=== PATIENT | male | born 1940 | race Caucasian/White ===

== ENCOUNTER 2017-09-26 09:05 | Observation (INO) ==
--- NOTE | 2017-09-26 08:43 | Anesthesia Evaluation PreOp ---
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 Other Medical History: Denies Any Significant HX Anesthesia History: No Prior Anesthetic Complications, Past Anesthesia Alcohol Use: none Drug use: none Medications and Allergies Aspirin Enteric Coated [Aspirin EC] 81 mg PO DAILY 09/04/17 [History] Clopidogrel [Plavix] 75 mg PO DAILY 09/04/17 [History] Lisinopril [Zestril] 5 mg PO DAILY 09/04/17 [History] Metoprolol XL (24 HR) Succ [Toprol Xl] 25 mg PO DAILY 09/04/17 [History] Nitroglycerin [Nitrostat] 0.4 mg SL Q5M PRN 09/04/17 [History] Simvastatin [Zocor] 40 mg PO HS 09/04/17 [History] Oseltamivir Phosphate [Tamiflu] 30 mg PO BID #8 capsule 09/07/17 [Rx] 3 Allergy/AdvReac Type Severity Reaction Status Date / Time No Known Allergies Allergy Verified 09/04/17 09:54 - Meds/Allergy Pre-op Review Medications Reviewed: Yes Allergies Reviewed: Yes Beta Blockers on Current Med List: Yes If Beta Blockers taken, Date/Time (Last Dose taken): today 729 Anesthesia Results - Labs Laboratory Tests 09/07/17 09/07/17 03:51 03:51 Hgb 11.5 L Hct 34.6 L Plt Count 95 L Sodium 135 L Potassium 4.3 BUN 20 Creatinine 0.73 - Imaging EKG: report reviewed (SINUS RHYTHM WITH FREQUENT VENTRICULAR PREMATURE COMPLEXES BORDERLINE RIGHT AXIS DEVIATION PROBABLE INFERIOR MYOCARDIAL INFARCTION, OF INDETERMINATE AGE) Additional studies: echo: Impressions: LVEF 45%. Normal LV chamber size and wall thickness. Atypical septal motion c/w a bundle branch block. Mild segmental left ventricular systolic dysfunction. Moderate left ventricular diastolic dysfunction. Atypical septal motion consistent with bundle branch block. Normal right ventricular structure and function. Mild tricuspid regurgitation. Mild pulmonary hypertension. Estimated RVSP is 41 mmHg. EF appears improved compared to prior report. Anesthesia Exam Selected Entries 09/26/17 09:26 Temperature 97.6 F Pulse Rate 73 Respiratory Rate 18 Blood Pressure 132/83 O2 Sat by Pulse Oximetry 99 Weight: 53kg NPO (# of Hours): 8 - HEENT Pupil (Motor): EOMI Mallampati: II Teeth: Edentulous Oral Opening: Greater than 3 - LOSS PREVENTION LEADER LOC: Oriented LOSS PREVENTION LEADER Motor: Normal RUE, Normal LUE, Normal RLE, Normal LLE, Normal Face LOSS PREVENTION LEADER Sensory: Normal: RUE, LUE, RLE, LLE, Face - Cardiac Rhythm: Regular Murmur: None - Pulmonary Breath Sounds: bilateral Clear Respiratory Effort: Symmetrical Anesthesia Assess/Plan ASA Score: 3 Modified Mike Scale for Level of Consciousness: Cooperative, oriented, and tranquil Anesthetic Plan: General Monitoring Plan: Standard Monitors, A-Line Recovery Plan: PACU (agrees to GA and a-line)
[~2017-09-26 09:05] MED LIST: Vancomycin 1,000 MG, Sodium Chloride IRRigation 1,000 ML IR ONE
[2017-09-26] MEDS ORDERED: CeFAZolin Syr 2,000MG/20 ML 2,000 MG/20 ML SYRINGE IVPB ONE (09:26)
[2017-09-26] MEDS ORDERED: Lidocaine -MPF 1% 2 ML VIAL ID ONE (09:26)
[2017-09-26] MEDS ORDERED: Vancomycin 750 MG in D5% in Water 250 ML IVPB ONE (09:26)
[2017-09-26] MEDS ORDERED: Plasma-Lyte A (PH 7.4) 1,000 ML IVC SCH (09:30)
[2017-09-26] MEDS ORDERED: Albuterol 2.5 MG/3 ML NEBULIZER IH ONE (09:51)
[2017-09-26] MEDS ORDERED: Albuterol 2.5 MG/3 ML NEBULIZER ONE (09:53)
--- NOTE | 2017-09-26 11:59 | History & Physical Report ---
Date of Encounter: 09/26/17 Time of Encounter: 11:50 24 Hour HP Update - Instructions Instructions: If the History and Physical is less than 30 days old and was completed prior to A.M. admission and or procedure and has NOT been updated on calendar day of procedure please complete this update prior to performing procedure. - Update Patient reports changes in Medical Condition: No Changes in examination, assessment, or condition: No Changes in Medication: No Preop tests/diagnostics Reviewed: Yes Surgery Remains Indicated: Yes Consent for Planned Operative Procedure(s) Verified: Yes - Pre-Operative Checklist Preoperative Checklist Indicated: Yes Prophylactic Antibiotic Ordered: Yes (vancomycin due to MRSA risk) Home Medications Include Beta Sean: Yes Beta Sean Taken Today (Day of Surgery): Yes Beta Sean Taken Yesterday (Day Prior to Surgery): Yes Is VTE Prophylaxis Indicated?: Yes
[2017-09-26] MEDS ORDERED: Heparin 1,000 UNITS/500 mL 0 ML ONE (12:22)
[2017-09-26] MEDS ORDERED: Bupivacaine-MPF 0.25% 10 ML VIAL ONE (12:25)
[2017-09-26] MEDS ORDERED: Protamine Sulfate 50 MG/5 ML VIAL IVP ONE (12:25)
[2017-09-26] MEDS ORDERED: Heparin 1,000 UNITS/500 mL 1,000 ML ONE (12:26)
[2017-09-26] MEDS ORDERED: Vancomycin 1,000 MG VIAL ONE (12:26)
[2017-09-26] MEDS ORDERED: *HR* PHENYLEPHRINE 1,000 MCG/10 ML SYRINGE IVP ONE (13:58)
[2017-09-26] MEDS ORDERED: Lidocaine -MPF 2% 2 ML VIAL ONE (13:58)
[2017-09-26] MEDS ORDERED: *HR* Propofol 200 MG/20 ML VIAL IVP ONE (13:58)
[2017-09-26] MEDS ORDERED: *HR* Midazolam HCl 2 MG/2 ML VIAL ONE (13:58)
[2017-09-26] MEDS ORDERED: *HR* Phenylephrine 10 MG/ML VIAL ONE (13:58)
[2017-09-26] MEDS ORDERED: *HR* FentaNYL (PF) 100 MCG/2 ML VIAL ONE (13:58)
[2017-09-26] MEDS ORDERED: *HR* Remifentanil 2 MG VIAL IVP ONE (13:58)
--- NOTE | 2017-09-26 14:01 | Anesthesia Procedures ---
Date of Encounter: 09/26/17 Time of Encounter: 13:10 Procedures: Anesthesia - Arterial Line Consent obtained: verbal consent Time out performed: Yes Local Anesthetic: Lidocaine 1% (0.2mL) Size (Gauge): 20 Length (inches): 1 3/4 Technique Used: sterile prep, guide wire technique, direct puncture technique Post-Procedure: line taped into place, dry sterile dressing placed Patient tolerated procedure: well, no complications Complications: none Site: Radial L Vitals: see anesthesia record Comments: successful on 1st attempt
[2017-09-26] MEDS ORDERED: *HR* Heparin 5,000 UNIT/ML VIAL ONE ×2 (14:02→14:46)
[2017-09-26] MEDS ORDERED: *HR* HYDROmorphone 2 MG TABLET PO PRN (14:03)
[2017-09-26] MEDS ORDERED: Ondansetron 4 MG/2 ML VIAL IVP ONE (14:03)
[2017-09-26] MEDS ORDERED: *HR* Midazolam HCl 2 MG/2 ML VIAL IVP PRN (14:03)
[2017-09-26] MEDS ORDERED: MORPHINE SUL Oral CONC 10 MG/0.5 ML ORAL.SYG SL PRN (14:03)
[2017-09-26] MEDS ORDERED: *HR* Labetalol 20 MG/4 ML SYRINGE IVP PRN ×2 (14:03→16:48)
[2017-09-26] MEDS ORDERED: Acetaminophen IV 1,000 MG/100 ML INFUS..BTL ONE (14:09)
[2017-09-26] MEDS ORDERED: Ondansetron 4 MG/2 ML VIAL ONE (15:16)
[2017-09-26] MEDS ORDERED: Dexamethasone 4 MG/ML VIAL ONE (15:16)
--- NOTE | 2017-09-26 16:04 | Operative Note ---
Date of procedure: 09/26/17 Pre-op diagnosis: 90% Left internal carotid artery stenosis Post-op diagnosis: same Procedure: Left carotid endarterectomy with hemashield patch angioplasty. Complications: None Anesthesia: GETA Surgeon: Destin Amato Was there an registered dental assistant rda present: No Estimated blood loss (cc): 50 Specimen: Left carotid plaque Condition: stable Disposition: PACU Procedure in Detail: Indications: The patient is a 77 year old male with a history of TIA and syncope. He was found to have an 90% left internal carotid artery stenosis. A left carotid endarterectomy was recommended. Procedure: The patient was identified in the preoperative area. The risks, benefits, and alternatives of the procedure were discussed and all questions were answered. The patient was then taken to the operating room and placed in supine position on the operating table. After induction of general endotracheal anesthesia, the patient was cleaned and draped in normal sterile fashion. A longitudinal incision was made anterior to the left sternocleidomastoid muscle. Hemostasis was obtained via electrocautery. Through a process of blunt , sharp, and electrocautery dissection, the platysma was traversed. The jugular vein was identified. The facial vein was clamped, divided and then ligated with a 2-0 silk suture ligature. The jugular vein was retracted, exposing the carotid bifurcation. Patient received 2000 units of heparin intravenously at this time. Proximal dissection of the common and external carotid arteries were performed circumferentially. Dissection of the internal carotid was performed circumferentially. Vessels loops were passed around the internal and external carotid and an umbilical tape was passed from the common carotid artery. The patient received anadditional 3000 units of heparin intravenously. Additional heparin was given during the procedure to maintain adequate anticoagulation. After waiting adequate time for the heparin to circulate, the vessels were occluded and a longitudinal arteriotomy was made into the common carotid artery. Guillaume scissors were used to extend the arteriotomy into the internal carotid beyond the plaque. Vigorous pulsatile retrograde flow was noted from the internal carotid artery upon release of the loop; therefore, no shunt was placed. A dental Bypro was used to perform a standard endarterectomy. Proximal and distal endpoints were inspected. No elevated flaps were noted. A Hemashield patch was cut to fit the defect and sutured in place with running 6 -0 Prolene. Prior to completing the closure, each vessel was flushed and then reoccluded. Heparinized saline was infused into the lumen. The patch was completed. Flow was restored in the external carotid artery, followed the common carotid artery, lastly the internal carotid artery was opened. A low resistance arterialized signal was present within the internal carotid artery beyond the patch. Thrombin and Gelfoam were used to aid in hemostasis. Meticulous hemostasis was obtained throughout the wound with electrocautery. Platelet rich and platelet poor plasma were infused into the wounds. The sternocleidomastoid was reapproximated with interrupted 3-0 Vicryl. Platelet rich and platelet poor plasma were infused into the wound. A TLS drain was brought through a separate stab incision and sutured in place with 0 silk suture. The platysma was reapproximated with running 3-0 Vicryl. Local anesthetic was infused in the skin. A 3-0 Monocryl was used to reapproximate the skin. Sterile dressing was applied. The patient was extubated, taken to the recovery room in stable condition.
--- NOTE | 2017-09-26 16:17 | Anesthesia Evaluation Post Op ---
Date of Encounter: 09/26/17 Time of Encounter: 16:15 - Vital Signs Vital Signs: Vital Signs/O2 Sat, Most Current Temp Pulse Resp BP Pulse Ox 97.6 F 73 18 132/83 99 09/26/17 09:26 09/26/17 09:26 09/26/17 09:26 09/26/17 09:26 09/26/17 09:26 - Lungs Lungs: Clear Ascult./Percussion - Airway Airway: Non-obstructed - Cardiovascular Regular Rate - Mental Status Mental Status: Alert & Oriented, Answers Appropriately - Pain Pain Scale: 1 Pain Scale used: Numeric (1 - 10) - Nausea Vomiting Nausea Vomiting: Not Present - Hydration Hydration: Ice chips, Has not voided Notes: 09/26/17 16:15 pt resting comfortably without complaints - Discharge PostOp Status: Transfer Patient to floor
[2017-09-26] MEDS ORDERED: *HR* OxyCODONE Immed Rel 5 MG TABLET PO PRN (16:48)
[2017-09-26] MEDS ORDERED: Ondansetron 4 MG/2 ML VIAL IVP PRN (16:48)
[2017-09-26] MEDS ORDERED: Naloxone 0.4 MG/ML INJ IVP PRN (16:48)
[2017-09-26] MEDS ORDERED: Nitroglycerin 0.4 MG TAB.SUBL SL PRN (16:48)
[2017-09-26] MEDS ORDERED: *HR* HYDROcodone/Acet 5/325 mg TABLET PO PRN (16:48)
[2017-09-26] MEDS ORDERED: Acetaminophen 325 MG TABLET PO PRN (16:48)
[2017-09-26] MEDS: *HR* Metoprolol 5 MG/5 ML VIAL IVP SCH (17:50)
[2017-09-26] MEDS: CeFAZolin Premix DUPLEX 2,000 MG/50 ML BAG IVPB SCH (17:54)
[2017-09-27] MEDS: CeFAZolin Premix DUPLEX 2,000 MG/50 ML BAG IVPB SCH (02:31)
[2017-09-27] MEDS: *HR* Metoprolol 5 MG/5 ML VIAL IVP SCH ×2 (05:25)
[2017-09-27] MEDS ORDERED: *HR* Heparin 5,000 UNIT/ML VIAL SQ SCH ×2 (06:00)
--- NOTE | 2017-09-27 07:12 | Discharge Summary ---
Date of Encounter: 09/27/17 Time of Encounter: 07:40 - Discharge Diagnosis (1) Carotid stenosis, left Priority: Primary Status: Chronic Comments: The patient is postoperative day #1 after a left carotid endarterectomy. His is alert, without any focal neurologic deficits. His wound is healing well without drainage or hematoma. He will be discharged today. (2) Cardiomyopathy Priority: Secondary Status: Chronic Qualifiers: Cardiomyopathy type: ischemic Qualified Code(s): I25.5 - Ischemic cardiomyopathy (3) Coronary artery disease Priority: Secondary Status: Chronic Qualifiers: Coronary Disease-Associated Artery/Lesion type: [place] artery [place] vs. transplanted heart: [place] heart Associated angina: without angina Qualified Code(s): I25.10 - Atherosclerotic heart disease of [place] coronary artery without angina pectoris (4) COPD (chronic obstructive pulmonary disease) Priority: Secondary Status: Chronic Qualifiers: COPD type: emphysema Emphysema type: panlobular Qualified Code(s): J43.1 - Panlobular emphysema (5) Essential hypertension Priority: Secondary Status: Chronic (6) Chronic disease anemia Priority: Secondary Status: Chronic (7) Tobacco abuse Priority: Secondary Status: Chronic - Discharge Medications Prescriptions: HYDROcodone/Acet 5/325 mg [[place] 5-325 mg] 1 tab PO Q6HR PRN 4 Days #15 tablet PRN Reason: postoperative pain Home Medications: Aspirin Enteric Coated [Aspirin EC] 81 mg PO DAILY 09/04/17 [History] Clopidogrel [Plavix] 75 mg PO DAILY 09/04/17 [History] Lisinopril [Zestril] 5 mg PO DAILY 09/04/17 [History] Metoprolol XL (24 HR) Succ [Toprol Xl] 25 mg PO DAILY 09/04/17 [History] Nitroglycerin [Nitrostat] 0.4 mg SL Q5M PRN 09/04/17 [History] Simvastatin [Zocor] 40 mg PO DAILY 09/04/17 [History] HYDROcodone/Acet 5/325 mg [[place] 5-325 mg] 1 tab PO Q6HR PRN 4 Days #15 tablet 09/27/17 [Rx] Allergies/Adverse Reactions: 3 Allergy/AdvReac Type Severity Reaction Status Date / Time No Known Allergies Allergy Verified 09/26/17 10:06 Date of admission: 09/26/17 16:42 Primary care physician: Chano Rogel Procedure(s) Performed: Left carotid endarterectomy Discharging clinician: Destin Amato Anticipated date of discharge: 09/27/17 - Patient Status Disposition: Home, Self-Care Condition: Good Functional capacity at discharge: independent ambulation Overall status at discharge: patient is back to baseline - Discharge Instructions Instructions: Hydrocodone/Acetaminophen (By mouth), Peripheral Vascular Disorders (DC), Chronic Hypertension (DC) Follow Up With: Chano Rogel MD [Primary Care Provider] - 10/05/17 10:15 am Destin Amato MD [Partnered Physician] - 11/07/17 1:00 pm Additional Instructions: May remove bandage and shower on 09/28/17. Wash wound gently and pat to dry. No driving for [address] Amato at [phone] with questions or concerns. - Diet and Activity Activity: increase activity as tolerated Diet: advance to your usual diet, low fat, low cholesterol - Hospital Course Hospital course: Mr. Pearce is a 77 year old male with hypertension, hyperlipidemia, chronic anemia, coronary artery disease and COPD. He was admitted and underwent a left carotid endarterectomy on 09/26/17. He tolerated the procedure well and was discharged on postoperative day #1 without complications. - Time Spent with Patient Total time spent providing and/or coordinating discharge services: Exam Vital Signs, Last 4 Hours Temp Pulse Resp BP Pulse Ox 09/27/17 05:25 65 09/27/17 05:03 98.3 F 67 17 100/62 95 General: Present: Conversant, No Apparent Distress HEENT: Present: Pupils equal Neck: Present: Other (incision clean and ry without hematoma, expected ecchymosis). Absent: JVD, Tracheal deviation Cardiac: Present: Reg Rate and Rhythm Lungs: Present: Normal Breath Sounds Neuro: Present: Alert and responsive, No focal deficits noted, Cranial nerves grossly intact, Motor nerves grossly intact, Sensory nerves grossly intact Abdomen: Present: Soft Vascular: Present: Normal capillary refill. Absent: Cyanosis, Edema Skin: Present: No rashes noted on visualized skin - VTE Documentation of Mechanical Device: Intermittent pneumatic compression device
[2017-09-27 08:30] VITALS: BP 129/77
[2017-09-27] MEDS ORDERED: Metoprolol XL (24 HR) Succ 25 MG TAB.ER.24H PO SCH (09:00)
[2017-09-27] MEDS ORDERED: Aspirin Enteric Coated 81 MG Tablet PO SCH (09:00)
== END 2017-09-27 09:58 | disposition home or self-care (01) | DRG 39 ==
LOC: SAMDAY 09:05 → INTOOBSV 16:42 → 2NNU 16:42
PROVIDERS: ADMIT Surgery; ATTEND Surgery